=== PATIENT | male | born 1950 | race Caucasian/White ===

== ENCOUNTER 2018-04-07 15:53 | Emergency (ER) | payer OTHER ==
[~2018-04-07] VITALS: Ht 175.3 cm; Wt 88.5 kg
== END 2018-04-07 19:40 | disposition home or self-care (01) ==
LOC: ER 15:53
DX: M94.0 Chondrocostal junction syndrome [Tietze] (principal)

== ENCOUNTER 2019-03-07 04:55 | Day surgery (SDC) | payer OTHER ==
[~2019-03-07 04:55] MED LIST: OXYBUTYNIN CHLO15 MG PO; SIMVASTATIN5 MG PO
== END 2019-03-07 10:10 | disposition home or self-care (01) ==
LOC: CIR.AMB 04:55 → ADM 08:15 → CIR.AMB 08:15
DX: D36.12 Benign neoplasm of peripheral nerves and autonomic nervous system, upper limb, including shoulder (principal); C43.61 Malignant melanoma of right upper limb, including shoulder

== ENCOUNTER → 2024-02-17 | Emergency (ER) | payer OTHER ==
[~2024-02-17] VITALS: Ht 175.3 cm; Wt 90.7 kg
[~2024-02-17] MED LIST changes: +DICLOFENAC SODI75 MG PO
== END | disposition left against medical advice (07) ==
LOC: ER 21:21
DX: Z53.21 Procedure and treatment not carried out due to patient leaving prior to being seen by health care provider (principal)